=== PATIENT | female | born 1960 | race Caucasian/White ===

== ENCOUNTER 2023-06-17 06:50 | Day surgery (SDC) | payer OTHER ==
[~2023-06-17] VITALS: Ht 170.2 cm; Wt 131.8 kg
[~2023-06-17 06:50] MED LIST: ACTOS45 MG PO; CINNAMON500 MG PO; LISINOPRIL10 MG PO; OMEGA 3 1,0001 EACH PO; [UNRECOGNIZED DRUG - OTHER] PO
[2023-06-17 07:11] VITALS: BP 124/52
[2023-06-17 09:45] VITALS: BP 126/66
--- NOTE | 2023-06-18 08:38 | OR ---
[facility] [address], [place] [address] Signed DATE OF OPERATION: 06/17/2023 SURGEON: Veronica Lund MD PREOPERATIVE DIAGNOSES: 1. Personal history of colonic polyps in 2018 at age 58. 2. Multiple 4 mm polyps at 8 cm in rectum. 3. A 4 mm polyp at 85 cm in distal transverse colon/proximal left colon. 4. A 4 mm polyp at 22 cm in sigmoid colon. 5. A 4 mm polyp at 18 cm in distal sigmoid colon. 6. A 4 mm polyp at 5 cm in rectum. 7. Minimal sigmoid diverticulosis. PROCEDURE: Colonoscopy with hot biopsies. ESTIMATED BLOOD LOSS: None. INDICATIONS: Rhea is a 63-year-old, obese, diabetic female, asked to see me for follow up colonoscopy. She has no family history of colon cancer or polyps. She had a colonoscopy at [facility] near [place], [place]. She said her primary care provider at that time was Dr. Prasad Alavrez at [phone]. She said on her phone she had been told there were several polyps removed. She was pretty certain she was told to follow up in five years. We have been trying to track down those results. In the office, I gave her a pamphlet on colonoscopy. She understands there are two different types of polyps. Adenomatous polyps need colonoscopy every five years. If she has hyperplastic polyps, she could wait as long as 10 years. She understands there is risk to the procedure including but not limited to gas bloating, crampy abdominal pain, bleeding, perforation requiring surgery, and missed diagnosis. We had reviewed the written instructions for bowel prep line by line. This included her diabetic medications. We also reviewed the need for monitored anesthesia care given her body mass index, diabetes, and so forth. She had expressed understanding and wished to proceed. PROCEDURE NOTE: Rhea was taken into our endoscopy suite and placed in the left lateral decubitus position. She was given monitored anesthesia care with propofol infusion per our nurse associate merchandiser. A digital rectal exam was performed. There were no external hemorrhoids. Electronically Signed By: VERONICA LUND MD 06/18/23 0838 PATIENT NAME: RHEA MERCADO OPERATIVE REPORT DATE OF : 62 REPORT #: [id number] PHYSICIAN: VERONICA LUND MD PCP: PEYTON PANCHAL MD REPORT IS CONFIDENTIAL AND NOT TO BE RELEASED WITHOUT AUTHORIZATION [facility] [address], [place] [address] Signed She had good sphincter tone. There were no masses. The adult colonoscope was introduced and advanced all around into the cecum under direct visualization of camera without difficulty. Her prep was quite excellent. We could easily see the appendiceal orifice and ileocecal valve. The scope was then slowly withdrawn. We had taken pictures throughout for photodocumentation. The above-mentioned polyps were easily removed with the help of hot biopsy forceps. They all appeared to be small hyperplastic polyps. Once in the rectum, the scope had been retroflexed and she really has no pathology above the anal canal. We also noticed several diverticula in the sigmoid colon. They were moderate in size, few in number and scattered about. After this, the gas was suctioned out, the colonoscope removed. Rhea tolerated procedure quite well. RECOMMENDATIONS: I will see Rhea back in my office in 7 to 14 days. She will likely stay on the 5-year plan. MD ALBIN Rivera/ELIAL /[id number] cc: MD Veronica Bryan MD Copies: VERONICA LUND MD ~ Electronically Signed By: VERONICA LUND MD 06/18/23 0838 PATIENT NAME: RHEA MERCADO OPERATIVE REPORT DATE OF : 62 REPORT #: [id number] PHYSICIAN: VERONICA LUND MD PCP: PEYTON PANCHAL MD REPORT IS CONFIDENTIAL AND NOT TO BE RELEASED WITHOUT AUTHORIZATION
--- NOTE | 2023-06-21 12:43 | PATH ---
[facility] [address] [facility] [place], [place] [address] Signed SPECIMEN(S): A COLON POLYP AT 8 CM SPECIMEN(S): B COLON POLYP AT 85 CM SPECIMEN(S): C SIGMOID COLON BIOPSY AT 22 CM SPECIMEN(S): D DISTAL COLON BIOPSY AT 18 CM SPECIMEN(S): E RECTUM AT 5 CM SPECIMEN SOURCE: A. COLON POLYP AT 8 CM B. COLON POLYP AT 85 CM C. SIGMOID COLON BIOPSY AT 22 CM D. DISTAL COLON BIOPSY AT 18 CM E. RECTUM AT 5 CM CLINICAL HISTORY: History of colon polyps. Polyps. Diverticulosis. FINAL PATHOLOGIC DIAGNOSIS: A. Colon polyp at 8 cm: - Hyperplastic polyp (two fragments). B. Colon polyp at 85 cm: - Benign colonic mucosa with slight hyperplastic features (one fragment). C. Sigmoid colon biopsy at 22 cm: - Hyperplastic polyp (two fragments). D. Distal colon biopsy at 18 cm: - Benign colonic mucosa with hyperplasia features (one fragment). E. Rectum at 5 cm: - Benign colonic mucosa with hyperplastic features (one fragment). JVR:clv MICROSCOPIC EXAMINATION: Histologic sections of all submitted blocks are examined by light microscopy. These findings, together with the gross examination, support the pathologic diagnosis. GROSS DESCRIPTION: A. The specimen, labeled and designated "Swales, R, colon (NOS) polypectomy at 8 cm," is received in formalin and consists of two schofield soft tissue fragments measuring 0.2 x 0.5 cm in greatest dimension, all specimens are submitted entirely in (A1). B. The specimen, labeled and designated "Swales, R, colon (NOS) polypectomy at 85 cm," is received in formalin and consists of one schofield soft tissue fragment PATIENT NAME: RHEA MERCADO PATHOLOGY DATE OF : 62 REPORT #: [id number] PHYSICIAN: LESLYE PATHOLOGY PCP: PEYTON PANCHAL MD REPORT IS CONFIDENTIAL AND NOT TO BE RELEASED WITHOUT AUTHORIZATION [facility] [address] [place], [place] [address] Signed measuring 0.2 x 0.4 cm and is submitted entirely in (B1). C. The specimen, labeled and designated "Swales, R, colon (NOS), sigmoid at 22 cm," is received in formalin and consists of three schofield-white soft tissue fragments measuring 0.3 x 0.4 cm in greatest dimension, all specimens are submitted entirely in (C1). D. The specimen, labeled and designated "Swales, R, distal colon (NOS) at 18 cm," is received in formalin and consists of one white soft tissue fragment measuring 0.2 x 0.3 cm and is submitted entirely in (D1). E. The specimen, labeled and designated "Swales, R, colon rectum at 5 cm," is received in formalin and consists of one schofield-white soft tissue fragment measuring 0.2 x 0.5 cm and is submitted entirely in (E1). MMA (under the direct supervision of a pathologist) The Gross Description was prepared using a voice recognition system. The report was reviewed for accuracy; however, sound-alike word errors, addition and/or deletions may occur. If there is any question about this report, please contact Client Services. PERFORMING LABORATORY: Technical component was performed by [facility], [address] [place] [id number] (CLIA# [id number]). Professional interpretation was performed by [facility], [address] [place] [address], [place] [address] (CLIA#: [id number]). Diagnostician: James Borges MD Pathologist Electronically Signed 06/21/2023 Copies: ~ PATIENT NAME: RHEA MERCADO [facility] PATHOLOGY DATE OF : 62 REPORT #: [id number] PHYSICIAN: LESLYE PATHOLOGY PCP: PEYTON PANCHAL MD REPORT IS CONFIDENTIAL AND NOT TO BE RELEASED WITHOUT AUTHORIZATION
== END 2023-06-17 09:58 | disposition home or self-care (01) ==
LOC: OPS 06:50 → DS 06:50 → OPS 08:35 → DS 08:45 → OPS 08:45 → DS 10:30
PROVIDERS: ATTEND Colon & Rectal Surgery
PROC: 0DBL8ZZ Excision of Transverse Colon, Via Natural or Artificial Opening Endoscopic (ICD-10-PCS; 2023-06-17)
PROC: 0DBN8ZZ Excision of Sigmoid Colon, Via Natural or Artificial Opening Endoscopic (ICD-10-PCS; 2023-06-17)
PROC: 0DBP8ZZ Excision of Rectum, Via Natural or Artificial Opening Endoscopic (ICD-10-PCS; 2023-06-17)
PROC: 0DBM8ZZ Excision of Descending Colon, Via Natural or Artificial Opening Endoscopic (ICD-10-PCS; principal; 2023-06-17 08:35)
DX: Z12.11 Encounter for screening for malignant neoplasm of colon (principal); Z86.010 Personal history of colon polyps; E66.9 Obesity, unspecified; Z68.42 Body mass index [BMI] 45.0-49.9, adult; K76.0 Fatty (change of) liver, not elsewhere classified; M17.10 Unilateral primary osteoarthritis, unspecified knee; I10 Essential (primary) hypertension; K63.5 Polyp of colon; K57.30 Diverticulosis of large intestine without perforation or abscess without bleeding; K62.1 Rectal polyp
CPT/HCPCS: 00811; J2001; J2704; J7121

== ENCOUNTER 2024-07-01 06:55 | Emergency (ER) | payer OTHER ==
[~2024-07-01] VITALS: Ht 170.2 cm; Wt 117.3 kg
[2024-07-01] MEDS ORDERED: METFORMIN HCL500 MG PO (07:18)
[2024-07-01] MEDS ORDERED: SULFAMETHOXAZO1 EAC1 PO (07:18)
[2024-07-01] MEDS ORDERED: OZEMPIC0.25 MG/02 SUB-Q (07:19)
[2024-07-01] MEDS ORDERED: VALTREX1000 MG PO (08:00)
[2024-07-01] MEDS ORDERED: CLINDAMYCIN HC150 MG PO (08:00)
[2024-07-01 08:17] VITALS: BP 140/77
== END 2024-07-01 08:18 | disposition home or self-care (01) ==
LOC: ED 06:55
DX: A60.04 Herpesviral vulvovaginitis (principal); N76.2 Acute vulvitis; Z88.0 Allergy status to penicillin; Z79.84 Long term (current) use of oral hypoglycemic drugs; Z79.85 Long-term (current) use of injectable non-insulin antidiabetic drugs; Z79.899 Other long term (current) drug therapy
CPT/HCPCS: 99282